=== PATIENT | female | born 1930 | race Caucasian/White ===

== ENCOUNTER 2017-01-31 11:25 | Emergency (ER) | payer MEDICARE, OTHER ==
--- NOTE | 2017-01-31 13:01 | RAD ---
ABDOMEN TWO VIEWS CHEST ONE VIEW: History: 86-year-old female with chronic constipation. Comparison: 09-06-15 FINDINGS: No acute intrathoracic disease. Atherosclerosis of the aorta and old granulomatous disease. No free intraperitoneal air. There is prominent amount of fecal material throughout the colon and rectum. No evidence for large or small bowel obstruction. No overt calculus. 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 IMPRESSION: Solid fecal material throughout the colon and rectum. No bowel obstruction or other acute process. POS: MARI[facility]
== END 2017-01-31 12:52 | disposition home or self-care (01) ==
LOC: NAV ERS 11:25
DX: K59.00 Constipation, unspecified (principal); K21.9 Gastro-esophageal reflux disease without esophagitis; I10 Essential (primary) hypertension; E78.5 Hyperlipidemia, unspecified; F32.9 Major depressive disorder, single episode, unspecified; Z79.82 Long term (current) use of aspirin; Z79.899 Other long term (current) drug therapy
CPT/HCPCS: 74022

== ENCOUNTER 2017-02-03 09:20 | Outpatient (CLI) | payer MEDICARE, OTHER ==
[2017-02-03 13:52] LABS: ALT (SGPT) 19 U/L (8-55); AST (SGOT) 21 U/L (5-34); Albumin 4.1 g/dL (3.4-4.8); Alkaline Phosphatase 99 U/L (40-150); Anion Gap 17 mmol/L (10-20); BUN (Urea Nitrogen) 9 mg/dL (9.8-20.1); Bilirubin, Direct 0.2 mg/dL (0.1-0.3); Bilirubin, Total 0.3 mg/dL (0.2-1.2); Calc. Creatinine Clearance 0 mL/min (70-130); Calcium 9.3 mg/dL (7.8-10.44); Carbon Dioxide 25 mmol/L (23-31); Cardiac Risk 2.7 (Less than 4.5); Chloride 102 mmol/L (98-107); Cholesterol 165 mg/dl (< 200 Desired); Estimated GFR-MDRD 63; Glucose 77 mg/dL (83-110); HDL Cholesterol 62 mg/dL (>60 Neg Risk); LDL Cholesterol, Calculated 79 mg/dL; Potassium 4.6 mmol/L (3.5-5.1); Protein, Total 7.1 g/dL (6.0-8.3); Sodium 139 mmol/L (136-145); Triglycerides 122 mg/dL (Less than 150)
[2017-02-03 13:55] LABS: #Basophils 0.1 thou/uL (0.0-0.2); #Eosinphils 0.1 thou/uL (0.0-0.7); #Lymphocytes 1.6 thou/uL (1.20-3.40); #Monocytes 0.5 thou/uL (0.11-0.59); #Neutrophils 4.6 thou/uL (1.40-6.50); %Basophils 0.9 % (0.0-1.0); %Eosinophils 2.1 % (0.0-10.0); %Lymphocytes 23.2 % (21.0-51.0); %Monocytes 6.5 % (0.0-10.0); %Neutrophils 67.3 % (42.0-75.0); Hemoglobin 11.5 g/dL (12.0-16.0); Mean Corpuscular HGB CONC 31.3 g/dL (32.0-36.0); Mean Corpuscular Hemoglobin 25.9 pg (27.0-31.0); Mean Corpuscular Volume 82.8 fl (81.0-99.0); Mean Platelet Volume 6.1 fL (7.4-10.4); Platelet Count 261 thou/uL (130-400); RBC Distribution Width 13.2 % (11.5-14.5); Red Blood Cell (RBC) Count 4.44 mill/uL (4.20-5.40); White Blood Cell (WBC) Count 6.9 thou/uL (4.8-10.8)
[2017-02-03 14:20] LABS: Bilirubin Negative (Negative); Blood, Urine Negative (Negative); Clarity Clear (Clear); Glucose, Urine (Dipstick) Negative (Negative); Leukocyte Negative (Negative); Nitrite Negative (Negative); Protein, Urine (Dipstick) Negative (Neg-Trace); Urobilinogen 0.2 mg/dL (0.2-1.0)
[2017-02-03 14:30] LABS: Hemoglobin A1c 5.6 % (4.0-6.0)
== END 2017-02-03 09:21 | disposition home or self-care (01) ==
LOC: NAVSJIPCSP 09:20
PROVIDERS: ATTEND Family Medicine
DX: E78.00 Pure hypercholesterolemia, unspecified (principal); E53.8 Deficiency of other specified B group vitamins; I10 Essential (primary) hypertension; N39.41 Urge incontinence; R73.01 Impaired fasting glucose; Z79.899 Other long term (current) drug therapy
CPT/HCPCS: 36415; 80048; 80061; 80076; 81003; 82607; 83036; 84443; 85025

== ENCOUNTER 2018-02-02 13:06 | Outpatient (CLI) | payer MEDICARE, OTHER ==
[2018-02-02 13:23] LABS: Bilirubin Negative (Negative); Blood, Urine Negative (Negative); Clarity Clear (Clear); Glucose, Urine (Dipstick) Negative (Negative); Leukocyte Negative (Negative); Nitrite Negative (Negative); Protein, Urine (Dipstick) Negative (Neg-Trace); Specific Gravity, Urine 1.015 (1.005-1.030); pH, Urine 6.5 (5.0-9.0)
== END 2018-02-02 13:07 | disposition home or self-care (01) ==
LOC: NAV LAB 13:06
PROVIDERS: ATTEND Family Medicine
DX: N39.41 Urge incontinence (principal)
CPT/HCPCS: 81003; 87086